=== PATIENT | female | born 1945 | race Caucasian/White ===

== ENCOUNTER 2024-06-02 10:19 | Emergency (ER) | payer OTHER ==
[~2024-06-02] VITALS: Ht 162.6 cm; Wt 54.0 kg
[2024-06-02 10:26] VITALS: O2SAT 100
[2024-06-02 11:04] LABS: POTASSIUM 4.8 mEq/L (3.5-5.1)
[2024-06-02 11:05] LABS: BASOPHILS % 1.3 % (0.0-2.0); EOSINOPHILS % 3.1 % (0.0-5.0); HEMATOCRIT. 36.3 % (36.0-48.0); HEMOGLOBIN. 11.9 g/dL (12.0-16.0); LYMPHOCYTES % 25.8 % (20.0-50.0); MEAN CORPUSCULAR HEMOGLOBIN 31.5 pg (28.0-32.0); MEAN CORPUSCULAR HGB CONC 32.9 g/dL (31.0-37.0); MEAN CORPUSCULAR VOLUME 95.8 fL (81.0-99.0); MEAN PLATELET VOLUME 8.3 fl (7.4-10.4); NEUTROPHILS % 62.8 % (40.0-76.0); PLATELET 353 x1000/uL (130-400); RED BLOOD CELL COUNT 3.79 mill/uL (4.2-5.4); RED CELL DISTRIBUTION WIDTH 18.7 % (11.6-14.6); WHITE BLOOD COUNT 6.2 x1000/uL (4.5-11.0)
[2024-06-02 11:06] LABS: CALCIUM 10.2 mg/dL (8.7-10.4)
[2024-06-02 11:10] LABS: CREATININE 1.3 mg/dL (0.6-1.0)
[2024-06-02 11:30] LABS: INR 0.9; PROTHROMBIN TIME 10.4 sec (9.6-11.0)
[2024-06-02 11:38] LABS: ALANINE AMINOTRANSFERASE 12 IU/L (10-49); ALBUMIN 4.2 g/dL (3.2-4.8); ASPARTATE AMINOTRANSFERASE 26 IU/L (<34); BILIRUBIN DIRECT 0.1 mg/dL (<=3.0)
[2024-06-02 11:39] LABS: BILIRUBIN TOTAL 0.5 mg/dL (0.1-1.0); PROTEIN TOTAL 6.5 g/dL (6.0-8.3)
[2024-06-02] MEDS: PANTOPRAZOLE SODIUM 40 MG/VIAL IV ONE (11:50)
[2024-06-02 11:59] LABS: ETHANOL BLOOD < 10 mg/dL (<10)
[2024-06-02] MEDS: SODIUM CHLORIDE 0.9% 1,000 ML IV ONE (12:43)
[2024-06-02] MEDS ORDERED: HYDROCODONE/ACETAMINOPHEN 5/325MG TABLET PO PRN (15:45)
[2024-06-02] MEDS ORDERED: IPRATROPIUM/ALBUTEROL 0.5-3(2.5)MG/3ML NEB HHN PRN (15:45)
[2024-06-02] MEDS ORDERED: ONDANSETRON HCL 4MG/2ML INJ IV PRN (15:45)
[2024-06-02] MEDS ORDERED: NALOXONE HCL 0.4MG/ML VIAL IV PRN (16:00)
[2024-06-02] MEDS: DEXT 5%/0.45% NACL 1000ML 1,000 ML IV SCH (16:36)
[2024-06-02 19:56] VITALS: BP 144/79; PULSE 62; RESP 16; TEMP 36.83628; O2SAT 100
[2024-06-03] MEDS ORDERED: PANTOPRAZOLE SODIUM 40 MG/VIAL IV SCH (09:00)
== END 2024-06-02 19:55 | disposition left against medical advice (07) ==
LOC: ER 10:49 → EDBEDREQTM 14:10 → EDBEDREQ 14:10 → ER 19:55 → CANBEDREQ 22:48
DX: K92.2 Gastrointestinal hemorrhage, unspecified (principal); N17.9 Acute kidney failure, unspecified; D64.9 Anemia, unspecified; F41.9 Anxiety disorder, unspecified; I49.9 Cardiac arrhythmia, unspecified; R51.9 Headache, unspecified; Z98.51 Tubal ligation status
CPT/HCPCS: 80076; 80048; 80320; 83690; 85025; 85610; 85730; 86850; 86900; 86901; 36415; 71045; 73562; 70450; 74176; 93005; 96361; 96365; 96366; 99291; J2470; J7030; G0480